=== PATIENT | male | born 1950 | race Caucasian/White ===

== ENCOUNTER → 2016-07-06 07:32 | Outpatient (CLI) | payer MEDICARE | END | disposition home or self-care (01) | LOC: D.RAD 07:32 → D.RT 09:00 → D.RAD 07-21 08:00 → D.RT 07-21 09:00 | DX: K21.9 Gastro-esophageal reflux disease without esophagitis (principal); J44.9 Chronic obstructive pulmonary disease, unspecified ==

== ENCOUNTER → 2016-11-13 09:35 | Outpatient (CLI) | payer MEDICARE | END | disposition home or self-care (01) | LOC: D.RAD 09:35 | DX: J90 Pleural effusion, not elsewhere classified (principal) ==

== ENCOUNTER 2017-01-26 13:00 | Inpatient (IN) | payer MEDICARE ==
[2017-01-26] MEDS ORDERED: ALPHAGAN P15 ML RIGHT EYE (14:19)
[2017-01-26] MEDS ORDERED: XANAX0.25 MG PO (14:20)
[2017-01-26] MEDS ORDERED: NORVASC2.5 MG PO (14:21)
[2017-01-26] MEDS ORDERED: SINEMET 25-1001 EACH PO (14:22)
[2017-01-26] MEDS ORDERED: BREO ELLIPTA 21 EACH (14:22)
[2017-01-26] MEDS ORDERED: COREG25 MG PO (14:23)
[2017-01-26] MEDS ORDERED: COLACE100 MG PO (14:25)
[2017-01-26] MEDS ORDERED: FUROSEMIDE40 MG PO (14:27)
[2017-01-26] MEDS ORDERED: NEURONTIN 300300 MG PO (14:28)
[2017-01-26] MEDS ORDERED: LEVEMIR100 U/M1 SC (14:28)
[2017-01-26] MEDS ORDERED: XALATAN 0.0052.5 ML RIGHT EYE (14:30)
[2017-01-26] MEDS ORDERED: BETAGAN 0.5% OPH5 ML EACH EYE (14:31)
[2017-01-26] MEDS ORDERED: LINZESS290 MCG PO (14:31)
[2017-01-26] MEDS ORDERED: HYZAAR 100-25 T1 TAB PO (14:32)
[2017-01-26] MEDS ORDERED: CLARITIN 10 MG10 MG PO (14:32)
[2017-01-26] MEDS ORDERED: MELATONIN 3 MG1 TAB PO (14:33)
[2017-01-26] MEDS ORDERED: MILK OF MAGNESI30 ML PO (14:34)
[2017-01-26] MEDS ORDERED: REMERON30 MG PO (14:34)
[2017-01-26] MEDS ORDERED: MULTIPLE VITAMI1 TA1 PO (14:35)
[2017-01-26] MEDS ORDERED: NASONEX NASAL S17 GM NS (14:35)
[2017-01-26] MEDS ORDERED: MUCINEX600 MG PO (14:35)
[2017-01-26] MEDS ORDERED: GLYCOLAX527 GM PO (14:38)
[2017-01-26] MEDS ORDERED: EFFEXOR XR150 MG PO (14:38)
[2017-01-26] MEDS ORDERED: TRAZODONE HCL50 MG PO ×2 (14:38→14:41)
[2017-01-26] MEDS ORDERED: HUMULIN R100 U/ML SC (14:48)
[2017-01-26] MEDS ORDERED: IPRAT-ALBUT 0.5-3 ML UPD ×2 (14:51→15:00)
[2017-01-26] MEDS ORDERED: CATAPRES0.1 MG PO (14:55)
[2017-01-26] MEDS ORDERED: HYDRALAZINE HCL25 MG PO (14:56)
[2017-01-26] MEDS ORDERED: ZOFRAN4 MG PO (14:57)
[2017-01-26] MEDS ORDERED: ULTRAM50 MG PO (14:58)
[2017-01-26] MEDS ORDERED: VISTARIL25 MG PO (14:59)
[2017-01-26 15:26] VITALS: BP 160/90; BMI 31.7
--- NOTE | 2017-01-26 15:30 | NUR ---
PATIENT IS ADMITTED FROM [facility], HE IS VOLUNTARY AND OX3, HE ADMITS TO DEPRESSION FOR YEARS, HE SAYS HE HAS HAD MULTIPLE SUICIDE ATTEMPTS OVER HIS LIFETIME, THIS TIME HE SAYS HE WENT TO [facility] WITH A PROJECT ESTIMATOR AND TOLD HER HE WAS GOING TO BUY SOME VITAMINS, BUT HE BOUGHT MELATONIN AND TOOK HALF THE BOTTLE OF IT ONE DAY AND THEN THE OTHER HALF THE NEXT DAY, HE SAYS THIS WAS LAST WEEK, BUT TODAY HE SAID "IF I HAD A GUN I'D SHOOT MYSEL" PATIENT SAYS HE WISHES HE WOULD JUST NOT WAKE UP, HE IS VERY DEPRESSED. HE HAS NO KNOW COPING SKILLS. PATIENT HAS HAD A LEFT HIP SURGERY THIS PAST APRIL AND THERE IS A SMALL SCAR ON THE LEFT UPPER THIGH. HE SAYS THIS IS HIS SECOND SURGERY ON THE SAME HIP FROM TWO DIFFERENT FALLS, HE USES A WALKER TO AMBULATE AND HAS A BUILT UP SHOE ON THE LEFT TO HELP HIM WALK WITH A LESS PRONOUNCED LIMP, ALTHOUGH, PATIENT DOES STILL HAVE A LIMP AND HE IS UNSTEADY EVEN WITH THE USE OF THE WALKER. PATIENT DOES CONTRACT FOR NO SELF HARM AND HE SAYS IF HE FEELS SUICIDAL HE SAYS HE WILL COME TO STAFF AND TELL THEM.
--- NOTE | 2017-01-26 16:00 | NUR ---
PATIENT HAS A YELLOW METAL WATCH ON AND HE IS KEEPING IT ON.
[2017-01-26 17:40] LABS: APPEARANCE CLEAR (CLEAR); BILIRUBIN NEGATIVE (NEGATIVE); COLOR YELLOW (YELLOW); GLUCOSE NEGATIVE (NEGATIVE); KETONE NEGATIVE (NEGATIVE); NITRITE NEGATIVE (NEGATIVE); PROTEIN NEGATIVE (NEGATIVE); SPECIFIC GRAVITY 1.005 (1.005-1.020); UROBILINOGEN NORMAL (NORMAL)
[2017-01-26 19:00] VITALS: BP 183/92
--- NOTE | 2017-01-27 02:37 | NUR ---
B) patient is alert and oriented, patient denies S>I. at this time, contracts for safety, calm and watching TV, I) Administered scheduled medications, monitored for safety R) Medications compliant, pleasant and friendly P) Continue plan of care.
[2017-01-27 05:58] LABS: BASOPHILS 0.4 % (0-2); EOSINOPHILS 6.7 % (0-7); HEMATOCRIT 38.2 % (42.0-54.0); HEMOGLOBIN 12.9 g/dL (13.5-17.5); IMMATURE GRANULOCYTES 1.3 % (0-5); LYMPHOCYTES 26.3 % (15-50); MCH 30.7 pg (26.0-34.0); MCHC 33.8 g/dL (31.0-37.0); MEAN PLATELET VOLUME 8.7 fL (7.4-10.4); MONOCYTES 9.3 % (2-11); PLATELET COUNT 207 10x3/uL (130-400); WBC 9.7 10x3/uL (4.8-10.8)
[2017-01-27 06:26] LABS: HEMOGLOBIN A1C 6.6 % (4.8-6.0)
[2017-01-27 06:40] LABS: ALBUMIN 3.2 g/dL (3.4-5.0); ALKALINE PHOSPHATASE 77 U/L (46-116); ALT (SGPT) 12 U/L (10-68); BILIRUBIN - TOTAL 0.26 mg/dL (0.2-1.3); CALC OSMOLALITY 267 mosm/kg (275-300); CALCIUM 9.1 mg/dL (8.5-10.1); CARBON DIOXIDE 32.2 mmol/L (21.0-32.0); CHLORIDE - SERUM 93 mmol/L (98-107); CHOL - HDL RATIO 5.2 ratio (2.3-4.9); CHOLESTEROL, TOTAL 162 mg/dL (0-200); CREATININE - SERUM 0.7 mg/dL (0.6-1.3); GLUCOSE 135 mg/dL (74-106); HDL CHOLESTEROL 31 mg/dL (32-96); LDL CHOLESTEROL 100 mg/dL (0-100); LDL-HDL RATIO 3.2 ratio (1.5-3.5); POTASSIUM - SERUM 3.6 mmol/L (3.5-5.1); PROTEIN - SERUM 7.5 g/dL (6.4-8.2); SODIUM 134 mmol/L (136-145); THYROID STIMULATING HORMONE 1.23 uIU/mL (0.36-3.74); TRIGLYCERIDE 158 mg/dL (30-200); UREA NITROGEN 8 mg/dL (7-18); eGFR NON AFRICAN AMERICAN > 90 mL/min (90-120)
--- NOTE | 2017-01-27 09:30 | NUR ---
B) PATIENT IS AWAKE AND ALERT, HE AMBULATES INDEPENDENTLY WITH A WALKER, HE IS INTERACTING WITH STAFF AND PEERS AND DOES NOT HAVE A FLAT OR BLUNTED AFFECT, DOES NOT SHOW ANY DEPRESSION, BUT HE DOES SAY HE IS SAD AND HE IS A BIT UPSET THAT THE PSYCHIATRIST CHANGED HIS MED FROM XANAX TO ATIVAN. PATIENT DENIES S.I. TODAY AND CONTRACTS FOR NO SELF HARM AND SAYS HE WILL SEEK STAFF IF HE FEELS LIKE HURTING HIMSELF. I) PROVIDE PRESCRIBED MEDS. R) PATIENT IS COMPLIANT WITH MEDS AND UNIT [facility]. P) CONTINUE POC.
[2017-01-27 11:05] VITALS: BP 162/91
--- NOTE | 2017-01-27 14:30 | NUR ---
PATIENT ASKED FOR A SHOWER AND A SHAVE. DEVIKA QUIROZ T TOOK HIM FOR A SHOWER AND A SHAVE. HE SAYS HE FEELS BETTER.
[2017-01-27 22:47] VITALS: BP 178/100
--- NOTE | 2017-01-27 23:18 | NUR ---
B) Patient is alert and oriented, friendly and pleasant social with staff I) Administered scheduled medications, monitored for safety and for falls, contracted for safety, R) Medication compliant, no S.I. or behaviors noted this shift, P) Continue plan of care.
[2017-01-28 07:00] VITALS: BP 148/88
--- NOTE | 2017-01-28 18:12 | NUR ---
IS ALERT AND ORIENTED X 4.DENIES THOUGHTS OF HARMING SELF TODAY.IS COMPLIANT WITH STAFF AND MEDS.AMBULATES WITH WALKER.WILL CONTINUE WITH PLAN OF CARE,MONITOR FOR SAFETY AND CHANGES.
[2017-01-28 19:30] VITALS: BP 119/96
--- NOTE | 2017-01-28 20:54 | NUR ---
RECEIVED IN BEDROOM. RESTING IN BED WITH EYES CLOSED. RESPONDS TO VOICE. CALM AND COOPERATIVE WITH CARE AND ASSESSMENTS. DENIES THOUGHTS OF SELF HARM. ENCOURAGE TO EXPRESS NEEDS. RESTING IN BED WITH EYES CLOSED AT THIS TIME. CONTINUE PLAN OF CARE
[2017-01-29 08:09] LABS: VITAMIN D 25 HYDROXY 17.7 ng/mL (30.0-100.0)
[2017-01-29 08:11] VITALS: BMI 31.8
[2017-01-29 09:18] VITALS: BP 155/90
--- NOTE | 2017-01-29 10:00 | NUR ---
AWAKE AND ALERT. HE IS CALM AND COOPERATIVEWITH A FLAT AFFECT. HE TALKED ABOUT USING A GUN NEXT TIME AND ENDING IT ALL. ADMINISTERED PRESCRIBED MEDICATIONS. VSS AND ASSESSMENRT COMPLETED. CONTIONUE PLAN OF CARE.
--- NOTE | 2017-01-29 10:44 | PSY ---
PATIENT NAME:ERLIN DAMON MEDICAL RECORD: [id number] : 46 LOCATION:[facility]ael[facility]31 ADMISSION DATE: 01/26/17 ACCOUNT: [id number] PSYCHIATRIC EVALUATION DATE OF EVALUATION: 01/27/17 Initial Psychiatric Workup IDENTIFYING DATA: This is one of several psychiatric contacts and hospitalizations for this 66-year-old unmarried white male. HISTORY OF PRESENT ILLNESS: Mr. Damon has a longstanding history of major depressive disorder. He has been alternatively diagnosed recently as having bipolar disorder type 2. He is currently a resident at a hospital for behavioral [facility] due to recent hip injury and difficulty with ambulation. The patient was previously admitted at the Behavioral Health Unit at [facility] approximately 4 years ago. On this occasion, the patient made a statement to the staff at [facility] that if he had a firearm, he would shoot himself. He had taken half of a bottle of prescription melatonin on one evening and another half of that the following evening. Because of this behavior and his statements, hospital for behavioral medicine referred him for admission. In the past, he has been acutely suicidal. He has responded well to antidepressants in the past as well as supportive therapy. The patient is now admitted because of suicidality. PAST MEDICAL HISTORY: Significant for recent left hip surgery. In addition, the patient has chronic hypertension, type 2 diabetes, neuropathy, Parkinson disease, chronic obstructive pulmonary disease and allergic rhinitis. FAMILY HISTORY: Noncontributory. SOCIAL HISTORY: The patient is single. He has lived in the [place] area his entire life. He does not have substance abuse issues. ALLERGIES: LISTED SULFONAMIDE ANTIBIOTICS. MEDICATIONS: At the time of admission included Alphagan, Norvasc, fluticasone, Sinemet, Coreg, Colace, Lasix, Neurontin, Levemir, Xalatan, Xanax, Betagan, Linzess, Hyzaar, Claritin, Milk of Magnesia, Remeron, Mucinex, multivitamins, Nasonex, MiraLax, Effexor, Humulin insulin, Catapres, Apresoline, Zofran, Ultram and albuterol. MENTAL STATUS EXAMINATION: Mood is dysphoric. Affect is bland. Social skills are good. Speech is fairly fluent. Content of thought is positive for recent suicidal ideation. Sensorium is fairly clear with some difficulties in concentration. DIAGNOSTIC IMPRESSION: AXIS I: Bipolar disorder type 2 -- depressed phase. AXIS II: No diagnosis. AXIS III: Hypertension, type 2 diabetes, Parkinson disease, neuropathy, chronic obstructive pulmonary disease. AXIS IV: Moderate. AXIS V: 38. PLAN: 1. The patient is admitted for further medication revision as indicated. 2. Daily supportive therapy. 3. We will coordinate with referring agency regarding aftercare plans. TRANSINT:[id number] Voice Confirmation ID: [id number] DOCUMENT ID: [id number] SAW CRUZ III, MD at 1044 CC: [id number] DICTATION DATE: 01/27/172049 FILLER AND TRIMMER: 01/27/172118 ADM IN [place] [place] [address]
[2017-01-29 12:13] LABS: FOLATE (FOLIC ACID) - SERUM 5.7 ng/mL (>3.0)
--- NOTE | 2017-01-29 16:08 | NUR ---
ZOFRAN 4 MG PO GIVEN FOR NAUSEA AND INDIGESTION.
[2017-01-29 20:09] VITALS: BP 180/80
--- NOTE | 2017-01-29 23:35 | NUR ---
RECEIVED IN BEDROOM. MOVING ABOUT IN ROOM GETTING READY FOR BED. SOCIAL WITH STAFF. IN GOOD SPIRITS. DENIES THOUGHTS OF SELF HARM. CALM AND COOPERATIVE WITH CARE AND ASSESSMENT. ENCOURAGE TO EXPRESS NEEDS. REDIRECT AND REORIENT NEEDED. RESTING IN BED WITH EYES CLOSED AT THIS TIME. CONTINUE PLAN OF CARE.
[2017-01-30 03:10] LABS: RAPID PLASMA REAGIN Non Reactive (Non Reactive)
[2017-01-30 09:24] VITALS: BP 171/95
--- NOTE | 2017-01-30 10:27 | PN ---
PATIENT:ERLIN VALERIO MEDICAL RECORD: [id number] LOCATION:PR[facility]ote[facility] ADMISSION DATE: 01/26/17 PROGRESS NOTE DATE OF SERVICE: 01/29/2017 SUBJECTIVE: The patient continues to make some suicidal statements. OBJECTIVE: The patient did offer additional history. He is currently seeing Iwona Bee as a counselor in [place]. He has been inconsistent regarding taking his medications. He does request a change in location once he returns to [facility]. The patient has been taking Effexor for about 10 years. On exam, mood is slightly anxious. Affect is bland. Speech is fluent. Content of thought is positive for suicidal statements. Sensorium shows no change. ASSESSMENT: No change in diagnosis. PLAN: 1. We will adjust anxiolytics and antidepressants as indicated. 2. Continue supportive therapy. TRANSINT:[id number] Voice Confirmation ID: [id number] DOCUMENT ID: [id number] SAW CRUZ III, MD at 1027 CC: [id number] DICTATION DATE: 01/29/17 1224 SOLAR INSTALLER TECHNICIAN: 01/29/17 1242 ADM IN [facility] [address] [place] [address]
[2017-01-30 20:52] VITALS: BP 146/66
--- NOTE | 2017-01-30 23:48 | NUR ---
RECEIVED IN ROOM. MOVING ABOUT IN ROOM GETTING READY FOR BED. SOCIALABLE WITH STAFF. IN GOOD SPIRITS. NO THOUGHTS OF SELF HARM. CALM AND COOPERATIVE WITH CARE AND ASSESSMENT. ENCOURAGE TO EXPRESS NEEDS. REDIRECT AND REORIENT NEEDED. RESTING IN BED WITH EYES CLOSED AT THIS TIME. CONTINUE PLAN OF CARE.
[2017-01-31 09:00] VITALS: BP 117/67
--- NOTE | 2017-01-31 09:15 | NUR ---
B) ALERT AND ORIENTED X 4, CALM AND COOPERATIVE WITH CARE. HE IS FRIENDLY AND PLEASANT WITH STAFF. HE IS STILL TALKING ABOUT SUICIDAL THOUGHTS OF SHOOTING HIMSELF. HIS AFFECT IS FLAT AND HE IS DEPRESSED TODAY. I) ADMINISTERED PRESCRIBED MEDICATIONS, VSS, ASSESSMENT COMPLETED. R) MEDICATION COMPLIANT, NO SI. P) CONTINUE PLAN OF CARE.
--- NOTE | 2017-01-31 10:34 | PN ---
PATIENT:ERLIN VALERIO MEDICAL RECORD: [id number] LOCATION:PRANAY [facility]ote113 ADMISSION DATE: 01/26/17 PROGRESS NOTE DATE OF SERVICE: 01/30/2017 SUBJECTIVE: The patient complains of headache. OBJECTIVE: The patient has done fairly well. He continues to give evidence of dysphoria. On exam, mood is rather dysphoric. Affect is constricted. Speech is fairly fluent. Content of thought focuses on somatic concerns. Sensorium shows no change. ASSESSMENT: No change in diagnosis. PLAN: 1. Maintain current medication. 2. Continue supportive therapy. TRANSINT:[id number] Voice Confirmation ID: [id number] DOCUMENT ID: [id number] SAW CRUZ III, MD at 1034 CC: [id number] DICTATION DATE: 01/30/17 1146 SOAP BOILER: 01/30/17 1200 ADM IN [place] [address] [place] [address]
[2017-01-31 20:22] VITALS: BP 220/108
--- NOTE | 2017-02-01 02:35 | NUR ---
B) Patient is alert and oriented X 4, calm and cooperative, no S.I. this shift, contracts for safety I) Administered scheduled medications, monitored for safety, R) Medication compliant, resting quietly in bed, P) Continue plan of care.
[2017-02-01 08:31] VITALS: BP 102/77
--- NOTE | 2017-02-01 09:04 | PN ---
PATIENT:ERLIN VALERIO MEDICAL RECORD: [id number] LOCATION:PRANAY Fregoso ADMISSION DATE: 01/26/17 PROGRESS NOTE DATE OF SERVICE: 01/31/2017 SUBJECTIVE: No new complaint today. OBJECTIVE: The patient is tolerating medication well. He states he thinks he is a little bit better. On exam, mood is for the most part euthymic. Affect is bland. Speech is fluent. Content of thought is negative for overt suicidal intents. Sensorium is unchanged. ASSESSMENT: No change in diagnosis. PLAN: 1. Maintain current medication. 2. Continue supportive therapy. TRANSINT:[id number] Voice Confirmation ID: [id number] DOCUMENT ID: [id number] SAW CRUZ III, MD at 0904 CC: [id number] DICTATION DATE: 01/31/17 1132 ASSISTANT ASSOCIATE FULL PROFESSOR: 01/31/[address] [facility] [address] [place] [address]
--- NOTE | 2017-02-01 19:00 | NUR ---
B) PATIENT IS CALM AND COOPERATIVE, HE AMBULATES WITH A WALKER INDEPENDENTLY, HE DOES ADMIT TO SAYING THAT HE TOLD HIS SISTER "WELL, [place]E [place] [facility] AND BIDE MY TIME UNTIL I ." I) PROVIDE PRESCRIBED MEDS. R) PATIENT COMPLIANT WITH MEDS AND UNIT [facility]IE[facility]. P) CONTINUE POC.
[2017-02-01 22:51] VITALS: BP 177/102
--- NOTE | 2017-02-02 02:10 | NUR ---
B) patient alert and oriented X 4, calm and cooperative with care and assessment, social with staff, I) Administered scheduled medications, monitored for safety and falls, contracted for safety R) Medication compliant, no S.I. this shift, pleasant and friendly, P) Continue plan of care.
--- NOTE | 2017-02-02 06:49 | NUR ---
PRN TRAMADOL 50 MG PO GIVEN FOR HEAD AND LEG PAIN 8 OF 10.
--- NOTE | 2017-02-02 07:21 | NUR ---
B) PATIENT IS AWAKE TODAY AND HE HAS MADE MULTIPLE SOMATIC C/O. HE MENTIONS HE THINKS HE MAY HAVE A UTI, BACKEND JAVA DEVELOPER DID SEND A URINALYSIS. HE AMBULATES INDEPENDENTLY. I) PROVIDE PRESCRIBED MEDS. R) PATIENT IS COMPLIANT WITH MEDS AND UNIT MILIEU. P) CONTINUE POC.
[2017-02-02 10:00] VITALS: BP 149/99
--- NOTE | 2017-02-02 10:06 | NUR ---
PATIENT REQUESTS SOMETHING IN ADDITION TO HIS SCHEDULED LAXATIVE. HE RECIEVED LACTULOSE 45 ML PO NOW.
--- NOTE | 2017-02-02 13:20 | NUR ---
PATIENT STATES LACTULOSE WORKED HE DID HAVE A BM JUST NOW.
[2017-02-02 19:30] VITALS: BP 140/75
--- NOTE | 2017-02-03 02:10 | NUR ---
B) patient alert and oriented X 4, calm and cooperative, I) Administered scheduled medications, monitored for safety and for falls, R) Medications compliant, resting in bed quietly, P) Continue plan of care.
[2017-02-03 08:00] VITALS: BP 159/97
--- NOTE | 2017-02-03 09:30 | NUR ---
PATIENT IS AWAKE AND ALERT X 4. CALM AND COOPERATIVE WITH CARE AND ASSESSMENT. VSS. MONITOR FOR SAFETY AND FALLS. ADMINISTERED PRESCRIBED MEDICATIONS. COMPLIANT WITH TAKING MEDS. CONTINUE PLAN OF CARE.
--- NOTE | 2017-02-03 11:00 | PN ---
PATIENT:ERLIN VALERIO MEDICAL RECORD: [id number] LOCATION:PRANAY [facility] ADMISSION DATE: 01/26/17 PROGRESS NOTE DATE OF SERVICE: 02/02/2017 SUBJECTIVE: The patient's case was discussed with staff. He has no new complaint. OBJECTIVE: The patient is in good behavioral control with very limited insight about his condition. He generally tolerates his medicines well. He denies any intent to harm himself or others. ASSESSMENT: No change in diagnoses. PLAN: Supportive and educational interventions were made. Assisted prognosis is guarded. TRANSINT:[id number] Voice Confirmation ID: [id number] DOCUMENT ID: [id number] NEREIDA BAUM MD at 1100 CC: [id number] DICTATION DATE: 02/02/17 1338 LEAF CONDITIONER HELPER: 02/02/17 1439 ADM IN [id number] [place] [address]
[2017-02-03 19:30] VITALS: BP 126/79
--- NOTE | 2017-02-04 03:29 | NUR ---
RECEIVED IN PATIENT ROOM. RESTING IN BED WTIH EYES CLOSED. RESPONDS TO VOICE. CALM AND COOPERATIVE WITH CARE AND ASSESSMENT. NO THOUGHTS OF SELF HARM. ENCOURAGE TO EXPRESS NEEDS. RESTING IN BED WITH EYES CLOSED AT THIS TIME. CONTINUE PLAN OF CARE.
[2017-02-04 08:00] VITALS: BP 176/83
--- NOTE | 2017-02-04 08:36 | NUR ---
PATIENT IS SITTING UP IN A CHAIR AND EATING BREAKFAST IN THE DINING ROOM. PATIENT IS AWAKE, ALERT, AND ORIENTED X4. PATIENT IS VERY CALM AND COOPERATIVE WITH THE STAFF. SCHEDULED MORNING MEDICATIONS GIVEN TO PATIENT. PATIENT TOLERATED MEDICATIONS WELL WITH NO PROBLEMS NOTED. WILL CONTINUE TO MONITOR PATIENT FOR SAFETY AND CONTINUE PLAN OF CARE.
[2017-02-04 19:30] VITALS: BP 125/81
--- NOTE | 2017-02-05 00:37 | NUR ---
RECEIVED IN ROOM. RESTING IN BED WITH EYES CLOSED. RESPONDS TO VOICE. CALM AND COOPERATIVE WITH CARE AND ASSESSMENT. NO THOUGHTS OF SELF HARM. ENCOURAGE TO EXPRESS NEEDS. REDIRECT AND REORIENT NEEDED. RESTING IN BED WTIH EYES CLOSED AT THIS TIME. CONTINUE PLAN OF CARE.
[2017-02-05 08:00] VITALS: BP 173/98
--- NOTE | 2017-02-05 10:19 | PN ---
PATIENT:ERLIN VALERIO MEDICAL RECORD: [id number] LOCATION:PRANAY [address] ADMISSION DATE: 01/26/17 PROGRESS NOTE DATE OF SERVICE: 02/01/2017 SUBJECTIVE: No new complaint noted. OBJECTIVE: The patient did rest well. He stated he had a good day yesterday and the patient denies suicidal ideation on direct interview. On exam, mood is more or less euthymic. Affect is bland. Speech is fairly fluent. Content of thought as noted above. Sensorium unchanged. ASSESSMENT: No change in diagnosis. PLAN: 1. Continue current medications. 2. Continue supportive therapy. TRANSINT:[id number] Voice Confirmation ID: [id number] DOCUMENT ID: [id number] SAW CRUZ III, MD at 1019 CC: [id number] DICTATION DATE: 02/01/17 1010 UNDERCOLLAR BASTER: 02/01/17 1141 ADM IN [place] [place] [address]
[2017-02-05] MEDS ORDERED: FEXOFENADINE H180 MG PO (10:45)
[2017-02-05] MEDS ORDERED: HYDRALAZINE HCL50 MG PO (10:46)
[2017-02-05] MEDS ORDERED: COZAAR50 MG PO (10:47)
[2017-02-05] MEDS ORDERED: ATIVAN1 MG PO (10:48)
[2017-02-05] MEDS ORDERED: CYMBALTA30 MG PO (10:48)
[2017-02-05] MEDS ORDERED: LINZESS145 MCG PO (10:50)
[2017-02-05] MEDS ORDERED: FLUTICASONE PRO16 GM NASAL (10:50)
[2017-02-05] MEDS ORDERED: DULCOLAX5 MG PO (10:51)
[2017-02-05] MEDS ORDERED: GLUCOPHAGE500 MG PO (10:51)
[2017-02-05] MEDS ORDERED: VITAMIN D5000 UNIT PO (10:51)
[2017-02-05] MEDS ORDERED: VITAMIN B-121000 MCG PO (10:52)
[2017-02-05] MEDS ORDERED: MULTI-DAY VITAM1 TAB PO (10:52)
--- NOTE | 2017-02-05 10:57 | NUR ---
PT IS CALM, COOPERATIVE. DENIES SI AND DEPRESSION. MEDICATIONS GIVEN ORDERED. FALL PRECAUTIONS MAINTAINED. ALL DISCHARGE PAPERWORK FAXED TO FACILITY. DISCHARGE INSTRUCTION REVIEWED WITH PT AND VERBALIZED UNDERSTANDING. WILL CONTINUE TO MONITOR AND CONTINUE WITH PLAN OF CARE.
--- NOTE | 2017-02-05 13:37 | PN ---
PATIENT:ERLIN VALERIO MEDICAL RECORD: [id number] LOCATION:PRANAY Fregoso ADMISSION DATE: 01/26/17 PROGRESS NOTE DATE OF SERVICE: 02/03/2017 SUBJECTIVE: The patient's case was discussed with staff. He has no new complaint. OBJECTIVE: The patient is in good behavioral control with limited insight about his condition. Eye contact is fair. ASSESSMENT: No change in diagnoses. PLAN: Brief supportive and educational interventions were made. The patient's long-term prognosis is guarded. I anticipate he can be transitioned out of the hospital soon if this level of improvement is maintained. TRANSINT:[id number] Voice Confirmation ID: [id number] DOCUMENT ID: [id number] NEREIDA BAUM MD at 1337 CC: [id number] DICTATION DATE: 02/03/17 1133 MANAGER OF ORGANIZATIONAL DEVELOPMENT: 02/03/17 1159 ADM IN [facility] [address] [place] [address]
[2017-02-05 21:18] VITALS: BP 143/76
--- NOTE | 2017-02-06 00:28 | NUR ---
RECEIVED IN PATIENT ROOM. RESTING IN BED WT EYES OPEN. CALM AND COOPERATIVE WITH CARE AND ASSESSMENT. NO THOUGHTS OF SELF HARM. IN GOOD BEHAVIOR. PLEASENTLY TALKING TO STAFF. ENCOURGE TO EXPRESS NEEDS. RESTING IN BED WT EYES CLOSED AT THIS TIME. CONTINUE PLAN OF CARE.
--- NOTE | 2017-02-06 05:37 | DS ---
PATIENT:ERLIN VALERIO :46 MEDICAL RECORD: [id number] DISCHARGE SUMMARY ADMISSION DATE: 01/26/17 DISCHARGE DATE: DATE OF ADMISSION: 01/26/2017 DATE OF DISCHARGE: 02/05/2017 HISTORY: One of several psychiatric contacts and hospitalizations for this 66-year-old unmarried white male. The patient has a long past history of major depressive disorder and bipolar type II. The patient is a [facility] of a local pen[facility] and had been showing worsening depressive symptoms and some suicidal ideation. For further details, please see previously dictated history. COURSE IN THE HOSPITAL: The patient was seen in consultation by Dr. Ahn. Dr. Ahn managed ongoing medical problems including diabetes, hypertension, Parkinson disease, COPD, and allergic rhinitis. From a psychiatric standpoint, it was elected to discontinue previous dose of Effexor and start the patient on Cymbalta 90 mg daily. Otherwise, significant changes in psychiatric medications were not attempted, however, the patient was switched from Xanax to Ativan on a routine basis. The patient showed a good resolution of his depressive symptoms. He was a good participant in group activities as well as individual therapy sessions. By the time of discharge, no evidence of suicidality. Mood was euthymic and affect was well controlled. FINAL DIAGNOSES: AXIS I: Bipolar type II - depressed phase - improving. AXIS II: No diagnosis. AXIS III: Chronic obstructive pulmonary disease, neuropathy, Parkinson disease, type 2 diabetes, and hypertension. AXIS IV: Moderate. AXIS V: 50. PLAN: 1. The patient is discharged on the current medications. 2. Diet and activities as tolerated. 3. Follow up through primary care physician at the penitentiary. TRANSINT:[id number] Voice Confirmation ID: [id number] DOCUMENT ID: [id number] SAW CRUZ III, MD at 0537 CC: [id number] DICTATION DATE: 02/05/17 1140 OCEAN EXPORT AGENT: 02/05/17 1421 ADM IN [address] [place] [address]
--- NOTE | 2017-02-06 13:10 | NUR ---
Alert and oriented times four. Calm and cooperative with care. very social and pleasant. Encourage patient to express feelings and monitor for any suicidial ideations. Participates in group, socializes and makes needs know, no suicidial ideations. Safety maintained. Continue plan of care.
[2017-02-06 20:39] VITALS: BP 159/95
--- NOTE | 2017-02-07 03:13 | NUR ---
RECEIVED IN BEDROOM. RESTING IN BED WITH EYES CLOSED. RESPONDS TO VOICE. CALM AND COOPERATIVE WITH CARE AND ASSESSMENTS. IN GOOD SPIRITS. DENIES THOUGHTS OF SELF HARM. ENCOURAGE TO EXPRESS NEEDS AND FEELINGS. RESTING IN BED WITH EYES CLOSED AT THIS TIME. CONTINUE PLAN OF CARE
--- NOTE | 2017-02-07 10:07 | NUR ---
CALM, COOPERATIVE WITH CARE. NO AGGRESSION. DENIES SI AND DEPRESSION. STAFF CONTINUE TO ENCOURAGE PT TO EXPRESS FEELINGS AND PARTICIPATE IN GROUPS. MEDICATIONS GIVEN ORDERED. WAITING ON APPROVAL FROM FACILITY TO DISCHARGE BACK TO THEM. FALL PRECAUTIONS MAINTAINED. WILL CONTINUE TO MONITOR AND CONTINUE WITH PLAN OF CARE.
--- NOTE | 2017-02-07 10:43 | PN ---
PATIENT:ERLIN VALERIO MEDICAL RECORD: [id number] LOCATION:PRANAY [address] ADMISSION DATE: 01/26/17 PROGRESS NOTE DATE OF SERVICE: 02/06/2017 SUBJECTIVE: No new complaint. OBJECTIVE: The patient's discharge has been delayed by [facility] due to the need for resident review. On exam, mood is euthymic. Affect bland. Speech fluent. Content of thought is unchanged. Sensorium unchanged. ASSESSMENT: No change in diagnosis. PLAN: 1. Maintain current treatment plan. 2. Anticipate discharge when [facility] [facility] gives the approval. TRANSINT:[id number] Voice Confirmation ID: [id number] DOCUMENT ID: [id number] SAW CRUZ III, MD at 1043 CC: [id number] DICTATION DATE: 02/06/17 1236 SCREW REMOVER: 02/06/17 1329 ADM IN [facility] [address] [place] [address]
[2017-02-07 11:10] VITALS: BP 180/111
--- NOTE | 2017-02-07 18:31 | NUR ---
Alert, oriented, calm, pleasant mood, denies pain/needs at this time. Sitting in w/c in dayroom.
[2017-02-07 19:38] VITALS: BP 154/71
--- NOTE | 2017-02-08 01:55 | NUR ---
RECEIVED IN BEDROOM. RESTING IN BED WTIH EYES CLOSED. RESPONDS TO VOICE. ALERT AND ORIENTED. IN GOOD SPIRITS. CALM AND COOPERATIVE WITH CARE AND ASSESSMENT. PATIENT DENIES ANY THOUGHTS OF SELF HARM. ENCOURAGE TO EXPRESS NEEDS. RESTING IN BED WITH EYES CLOSED AT THIS TIME. CONTINUE PLAN OF CARE.
--- NOTE | 2017-02-08 05:44 | PN ---
PATIENT:ERLIN VALERIO MEDICAL RECORD: [id number] LOCATION:[facility] ADMISSION DATE: 01/26/17 PROGRESS NOTE DATE OF SERVICE: 02/07/2017 SUBJECTIVE: No new complaint. OBJECTIVE: The patient's discharge is still delayed pending a reply from [facility]. On exam, mood is euthymic. Affect bland. Speech is fluent. Content of thought is negative for psychosis. Sensorium unchanged. ASSESSMENT: No change in diagnosis. PLAN: 1. Continue current treatment plan. 2. Anticipate discharge soon. TRANSINT:[id number] Voice Confirmation ID: [id number] DOCUMENT ID: [id number] SAW CRUZ III, MD at 0544 CC: [id number] DICTATION DATE: 02/07/17 1139 STILL CLEANER: 02/07/17 1157 ADM IN [facility] [address] [place] [address]
--- NOTE | 2017-02-08 09:00 | NUR ---
B) PATIENT IS AWAKE AND ALERT, HE IS READY TO GO HOME, WAITING FOR KASSANDRA TO COME IN AND HE MAY D/C. PATIENT IS ABLE TO AMBULATE INDEPENDENTLY WITH HIS WALKER, HE HAS NOT MADE ANY S.I. I) PROVIDE PRESCRIBED MEDS. R) PATIENT IS COMPLIANT WITH MEDS AND UNIT MILIEU. P) CONTINUE POC.
--- NOTE | 2017-02-08 10:00 | NUR ---
KASSANDRA CAME BACK AND HAS SAID PATIENT CAN D/C BACK TO [facility]. FAXED ALL D/C ORDERS AND MEDS. PACKED PATIENT UP AND HE IS AWAITING A RIDE FROM [facility].
--- NOTE | 2017-02-08 10:40 | NUR ---
[facility] IS HERE TO TRANSPORT PATIENT BACK TO [facility], REPORT CALLED TO HIS NURSE. PATIENT ASSISTED TO TURNERS STATION WITH STAFF. PATIENT IS NOW D/C'D.
--- NOTE | 2017-02-09 10:01 | DS ---
PATIENT:ERLIN DAMON :46 MEDICAL RECORD: [id number] DISCHARGE SUMMARY ADMISSION DATE: 01/26/17 DISCHARGE DATE: 02/08/17 ADDENDUM Previous discharge summary was dictated about 3 days ago. Mr. Damon's discharge was delayed due to the need for authorization from [facility]. We have received that authorization as of today. The patient will be transported back to [facility]. FINAL DIAGNOSES AND PLAN: Remain the same. TRANSINT:[id number] Voice Confirmation ID: [id number] DOCUMENT ID: [id number] SAW CRZU III, MD at 1001 CC: [id number] DICTATION DATE: 02/08/17 120 SCREEN EXAMINER: 02/08/17 1222 DIS IN 02/08/17 [facility] [address] [place] [address]
== END 2017-02-08 10:40 | DRG 885 ==
LOC: D.PSYCH 13:00
PROVIDERS: ADMIT Psychiatry & Neurology Psychiatry
DX: F31.30 Bipolar disorder, current episode depressed, mild or moderate severity, unspecified (principal); E11.40 Type 2 diabetes mellitus with diabetic neuropathy, unspecified; Z79.4 Long term (current) use of insulin; G20 Parkinson's disease; I10 Essential (primary) hypertension; J44.9 Chronic obstructive pulmonary disease, unspecified; J30.9 Allergic rhinitis, unspecified; E53.8 Deficiency of other specified B group vitamins; E55.9 Vitamin D deficiency, unspecified

== ENCOUNTER 2018-07-15 15:51 | Inpatient (IN) | payer MEDICARE ==
[~2018-07-15] VITALS: Ht 182.9 cm; Wt 89.8 kg
[~2018-07-15 15:51] MED LIST: ALPHAGAN P15 ML RIGHT EYE; ATIVAN1 MG PO; BETAGAN 0.5% OPH5 ML EACH EYE; BREO ELLIPTA 21 EACH; CATAPRES0.1 MG PO; CLARITIN 10 MG10 MG PO; COLACE100 MG PO; COREG25 MG PO; COZAAR50 MG PO; CYMBALTA30 MG PO; DULCOLAX5 MG PO; EFFEXOR XR150 MG PO; FEXOFENADINE H180 MG PO; FLUTICASONE PRO16 GM NASAL; FUROSEMIDE40 MG PO; GLUCOPHAGE500 MG PO; GLYCOLAX527 GM PO; HUMULIN R100 U/ML SC; HYDRALAZINE HCL25 MG PO; HYDRALAZINE HCL50 MG PO; HYZAAR 100-25 T1 TAB PO; IPRAT-ALBUT 0.5-3 ML UPD; LEVEMIR100 U/M1 SC; LINZESS145 MCG PO; LINZESS290 MCG PO; MELATONIN 3 MG1 TAB PO; MILK OF MAGNESI30 ML PO; MUCINEX600 MG PO; MULTI-DAY VITAM1 TAB PO; MULTIPLE VITAMI1 TA1 PO; NASONEX NASAL S17 GM NS; NEURONTIN 300300 MG PO; NORVASC2.5 MG PO; REMERON30 MG PO; SINEMET 25-1001 EACH PO; TRAZODONE HCL50 MG PO; ULTRAM50 MG PO; VISTARIL25 MG PO; VITAMIN B-121000 MCG PO; VITAMIN D5000 UNIT PO; XALATAN 0.0052.5 ML RIGHT EYE; XANAX0.25 MG PO; ZOFRAN4 MG PO
[2018-07-15] MEDS ORDERED: BAYER CHEWABLE81 MG PO (17:24)
[2018-07-15] MEDS ORDERED: ALOPHEN PILLS5 MG PO (17:25)
[2018-07-15] MEDS ORDERED: BREO ELLIPTA 21 EACH (17:26)
[2018-07-15] MEDS ORDERED: CYMBALTA60 MG PO (17:26)
[2018-07-15] MEDS ORDERED: FLUTICASONE PRO16 GM NASAL (17:27)
[2018-07-15] MEDS ORDERED: LIPITOR20 MG PO (17:27)
[2018-07-15] MEDS ORDERED: LASIX40 MG PO (17:27)
[2018-07-15] MEDS ORDERED: COZAAR100 MG PO (17:28)
[2018-07-15] MEDS ORDERED: ZYPREXA5 MG PO (17:29)
[2018-07-15] MEDS ORDERED: HYDROCHLOROTHIA25 MG PO (17:29)
[2018-07-15] MEDS ORDERED: HYTRIN5 MG PO (17:31)
[2018-07-15] MEDS ORDERED: K-DUR20 MEQ PO (17:31)
[2018-07-15] MEDS ORDERED: XARELTO15 MG PO (17:32)
[2018-07-15] MEDS ORDERED: ASPERCREME 5 OZ5 OZ TOPICAL (17:33)
[2018-07-15] MEDS ORDERED: ALPHAGAN P15 ML RIGHT EYE (17:33)
[2018-07-15] MEDS ORDERED: MUCINEX600 MG PO (17:34)
[2018-07-15] MEDS ORDERED: NEURONTIN 300300 MG PO (17:34)
[2018-07-15] MEDS ORDERED: KLONOPIN0.5 MG PO (17:34)
[2018-07-15] MEDS ORDERED: HYDRALAZINE HCL50 MG (17:35)
[2018-07-15] MEDS ORDERED: CATAPRES0.1 MG (17:37)
[2018-07-15] MEDS ORDERED: ADVIL200 MG PO (17:37)
[2018-07-15 22:48] VITALS: BP 150/71; BMI 26.9
[2018-07-16 06:12] LABS: BASOPHILS 0.5 % (0-2); EOSINOPHILS 7.1 % (0-7); HEMATOCRIT 28.2 % (42.0-54.0); IMMATURE GRANULOCYTES 0.5 % (0-5); LYMPHOCYTES 17.8 % (15-50); MCH 28.6 pg (26.0-34.0); MCHC 31.9 g/dL (31.0-37.0); MCV 89.5 fL (80.0-100.0); MEAN PLATELET VOLUME 8.7 fL (7.4-10.4); MONOCYTES 8.3 % (2-11); NEUTROPHILS 65.8 % (40-80); PLATELET COUNT 166 10x3/uL (130-400); RBC 3.15 10x6/uL (4.20-6.10); WBC 8.8 10x3/uL (4.8-10.8)
[2018-07-16 06:58] LABS: ALKALINE PHOSPHATASE 82 U/L (46-116); ALT (SGPT) 8 U/L (10-68); BILIRUBIN - TOTAL 0.35 mg/dL (0.2-1.3); CALC OSMOLALITY 275 mosm/kg (275-300); CHLORIDE - SERUM 98 mmol/L (98-107); CHOL - HDL RATIO 3.6 ratio (2.3-4.9); CHOLESTEROL, TOTAL 90 mg/dL (0-200); GLUCOSE 125 mg/dL (74-106); HDL CHOLESTEROL 25 mg/dL (32-96); LDL CHOLESTEROL 52 mg/dL (0-100); LDL-HDL RATIO 2.1 ratio (1.5-3.5); POTASSIUM - SERUM 3.7 mmol/L (3.5-5.1); PROTEIN - SERUM 6.9 g/dL (6.4-8.2); SODIUM 137 mmol/L (136-145); TRIGLYCERIDE 68 mg/dL (30-200); UREA NITROGEN 14 mg/dL (7-18); eGFR NON AFRICAN AMERICAN 78 mL/min (90-120)
[2018-07-16 08:01] VITALS: BP 147/88
[2018-07-16 10:12] VITALS: BMI 26.9
[2018-07-16 20:14] VITALS: BP 123/72
[2018-07-17 06:14] LABS: VITAMIN D 25 HYDROXY 53.5 ng/mL (30.0-100.0)
[2018-07-17 07:31] LABS: RAPID PLASMA REAGIN Non Reactive (Non Reactive)
[2018-07-17 08:00] VITALS: BP 135/82
[2018-07-17 10:20] LABS: FOLATE (FOLIC ACID) - SERUM 16.4 ng/mL (>3.0)
[2018-07-17 10:59] LABS: APPEARANCE SL CLDY (CLEAR); BACTERIA MODERATE /hpf (NONE SEEN); BILIRUBIN NEGATIVE (NEGATIVE); COLOR YELLOW (YELLOW); EPITHELIAL CELLS 0-5 /hpf (0-5); GLUCOSE NEGATIVE (NEGATIVE); KETONE NEGATIVE (NEGATIVE); NITRITE NEGATIVE (NEGATIVE); PROTEIN TRACE mg/dL (NEGATIVE); RED CELLS - URINE 0-5 /hpf (0-5); SPECIFIC GRAVITY 1.005 (1.005-1.020); UROBILINOGEN NORMAL (NORMAL); WHITE CELLS - URINE 25-50 /hpf (0-5)
--- NOTE | 2018-07-17 14:15 | PSY ---
PATIENT NAME:ERLIN VALERIO MEDICAL RECORD: [id number] : 46 LOCATION:[facility]1 ADMISSION DATE: 07/15/18 ACCOUNT: [id number] PSYCHIATRIC EVALUATION DATE OF EVALUATION: 07/16/18 IDENTIFYING DATA: The patient is 68 years old and he is admitted to the hospital secondary to suicidal statements. CHIEF COMPLAINT: "I just was upset." HISTORY OF PRESENT ILLNESS: The patient lives in a half-way in [place]. He says that he had planned to overdose and told the nursing staff there that he was going to do so. He tells me that the Bible says that a man's life is threescore and ten and that is enough. He says that he has turned 68 this June and feels that it is time to leave. He now says he thinks he is going to change his mind because it would be wrong to do something ahead of God's schedule. He endorses numerous neurovegetative depressive symptoms including poor sleep, poor appetite, loss of interest in usual activities, and feeling helpless and hopeless. Although he is hyper-cheondoism, I do believe he is psychotic. PAST MEDICAL HISTORY: Significant for Parkinson disease, neuropathy, glaucoma, diabetes, hypertension, COPD, hip fracture, and cataracts. PAST PSYCHIATRIC HISTORY: Significant for multiple psychiatric hospitalizations and numerous inpatient and outpatient treatments. He has indeed attempted to harm himself multiple times in the past. It is not overreacting for the half-way to respond when he makes any kind of overture or statement about hurting himself. He does not have a history of substance abuse. FAMILY HISTORY: Significant for cancer and hypertension, but negative for psychiatric disease by his report. ALLERGIES: SULFA. CURRENT MEDICATIONS: Include Ultram, Catapres, insulin, Neurontin, Mucinex, Klonopin, Xarelto, Hytrin, K-Dur, Zyprexa, hydrochlorothiazide, Lipitor, Lasix, Cymbalta, aspirin, Zofran, Remeron, a variety of eye drops, Coreg, and Sinemet. SOCIAL HISTORY: The patient is single. He has never been and has no children. He is from [place] and does not have a history of drug or alcohol abuse. MENTAL STATUS EXAMINATION: The patient is awake, alert and oriented fully. He is mildly mistaken about the date. His mood is depressed. His affect is appropriate. Thought processes are circumstantial. Memory, concentration, and abstraction abilities are mildly impaired, and he denies any active intent to harm himself or others as well as overt psychotic symptoms. ASSETS: Supportive family members. LIABILITIES: Limited insight. DIAGNOSTIC IMPRESSION: AXIS I: Bipolar disorder type 2, depressed phase. AXIS II: None. AXIS III: Hypertension, diabetes, Parkinson disease, neuropathy, chronic obstructive pulmonary disease. AXIS IV: Moderate. AXIS V: Global assessment of functioning is 40. PLAN: At this time, the patient is admitted to the hospital secondary to suicidal thoughts. He will be comprehensively evaluated from both a medical, psychological, and social standpoint. He will be treated with both mood stabilizing and memory enhancing medications. His long-term prognosis is guarded. TRANSINT:[id number] Voice Confirmation ID: [id number] DOCUMENT ID: [id number] NEREIDA BAUM MD at 1415 CC: [id number] DICTATION DATE: 07/16/18 1257 VARNISH FILTERER: 07/16/[address] [facility] [address] [place] [id number]
[2018-07-18 07:13] VITALS: BP 108/55
[2018-07-18 08:21] VITALS: BP 139/79
--- NOTE | 2018-07-18 16:09 | PN ---
PATIENT:ERLIN VALERIO MEDICAL RECORD: [id number] LOCATION:[facility] ADMISSION DATE: 07/15/18 PROGRESS NOTE DATE OF SERVICE: 07/17/2018 SUBJECTIVE: The patient's case was discussed with staff. He has no new complaint. OBJECTIVE: The patient is oriented fully. He tells me that he is satisfied with his medication regimen and does feel that it is helping. He does not want me to change his Cymbalta. ASSESSMENT: No change in diagnoses. PLAN: The patient will be maintained on current medications. Brief supportive and educational interventions were made. TRANSINT:[id number] Voice Confirmation ID: [id number] DOCUMENT ID: [id number] NEREIDA BAUM MD at 1609 CC: [id number] DICTATION DATE: 07/17/18 1450 SOLDERER TORCH: 07/17/18 1514 ADM IN [id number] [place] [address]
[2018-07-18 20:22] VITALS: BP 140/74
[2018-07-19 08:59] VITALS: BP 136/77
--- NOTE | 2018-07-19 15:40 | PN ---
PATIENT:ERLIN VALERIO MEDICAL RECORD: [id number] LOCATION:[facility] ADMISSION DATE: 07/15/18 PROGRESS NOTE DATE OF SERVICE: 07/18/2018 SUBJECTIVE: The patient's case was discussed with staff. He has no new complaint. OBJECTIVE: The patient is denying intent to harm himself or others. He does have a depressed mood. He is tolerating his Depakote well. ASSESSMENT: No change in diagnoses. PLAN: Supportive and educational interventions were made. Long-term prognosis is guarded. TRANSINT:[id number] Voice Confirmation ID: [id number] DOCUMENT ID: [id number] NEREIDA BAUM MD at 1540 CC: [id number] DICTATION DATE: 07/18/18 1710 HEALTH SAFETY MANAGER: 07/18/18 2305 ADM IN [facility] [address] [place] [address]
[2018-07-19 22:55] VITALS: BP 162/88
[2018-07-20 08:00] VITALS: BP 142/70
--- NOTE | 2018-07-20 11:00 | PN ---
PATIENT:ERLIN VALERIO MEDICAL RECORD: [id number] LOCATION:T[facility]sa [facility]ote113 ADMISSION DATE: 07/15/18 PROGRESS NOTE DATE OF SERVICE: 07/19/2018 SUBJECTIVE: The patient's case was discussed with staff. He has no new complaint. OBJECTIVE: The patient is in good behavioral control. He is tolerating his medicines well. He has not had any thoughts of harming himself or others. His Depakote level yesterday was subtherapeutic. ASSESSMENT: Bipolar disorder. PLAN: I am going to discontinue the patient's current dose of Depakote and will increase the dose to 500 mg twice daily. His long-term prognosis is guarded. TRANSINT:[id number] Voice Confirmation ID: [id number] DOCUMENT ID: [id number] NEREIDA BAUM MD at 1100 CC: [id number] DICTATION DATE: 07/19/18 1621 BALLET COMPANY MEMBER: 07/20/18 0034 ADM IN [id number] [place] [address]
[2018-07-21 00:35] VITALS: BP 151/78
[2018-07-21 07:00] VITALS: BP 109/89
--- NOTE | 2018-07-21 10:05 | PN ---
PATIENT:ERLIN VALERIO MEDICAL RECORD: [id number] LOCATION:PR[facility]Y [facility]ote[facility] ADMISSION DATE: 07/15/18 PROGRESS NOTE DATE OF SERVICE: 07/20/2018 SUBJECTIVE: The patient's case was discussed with staff. He has no new complaint. OBJECTIVE: The patient has a depressed mood, but no thoughts of self-harm. He is tolerating his higher dose of Depakote very well. I am going to continue him on the antidepressant Cymbalta. TRANSINT:[id number] Voice Confirmation ID: [id number] DOCUMENT ID: [id number] NEREIDA BAUM MD at 1005 CC: [id number] DICTATION DATE: 07/20/18 1157 CUSTOMER SUPPORT EXECUTIVE: 07/20/18 1308 ADM IN [place] [id number] [place] [id number]
[2018-07-21 20:22] VITALS: BP 183/93
[2018-07-22 07:00] VITALS: BP 125/60
--- NOTE | 2018-07-22 15:11 | PN ---
PATIENT:ERLIN VALERIO MEDICAL RECORD: [id number] LOCATION:PRANAY Fregoso ADMISSION DATE: 07/15/18 PROGRESS NOTE DATE OF SERVICE: 07/21/2018 SUBJECTIVE: The patient's case was discussed with staff. He has no new complaint. OBJECTIVE: The patient denies intent to harm himself or others. He does tolerate his medicines well. ASSESSMENT: Bipolar disorder. PLAN: The patient is going to be transitioned back to the [facility]. He is not showing any evidence of acute or direct dangerousness and I anticipate he can be transitioned out of the hospital soon. TRANSINT:[id number] Voice Confirmation ID: [id number] DOCUMENT ID: [id number] NEREIDA BAUM MD at 1511 CC: [id number] DICTATION DATE: 07/21/18 1128 CLAIM ADJUSTER: 07/21/18 1843 ADM IN [facility] [address] [place] [address]
[2018-07-22 20:32] VITALS: BP 123/75
[2018-07-23 07:00] VITALS: BP 112/55
[2018-07-23 11:51] VITALS: Ht 182.9 cm; Wt 89.8 kg
--- NOTE | 2018-07-23 15:34 | PN ---
PATIENT:ERLIN VALERIO MEDICAL RECORD: [id number] LOCATION:PRANAY Fregoso ADMISSION DATE: 07/15/18 PROGRESS NOTE DATE OF SERVICE: 07/22/2018 SUBJECTIVE: The patient's case was discussed with staff. He has no new complaint. OBJECTIVE: The patient is tolerating his medicines well. He has not been aggressive or threatening to harm himself. ASSESSMENT: Bipolar disorder. PLAN: Current medicines have been reviewed and will be maintained. His long-term prognosis is guarded. TRANSINT:[id number] Voice Confirmation ID: [id number] DOCUMENT ID: [id number] NEREIDA BAUM MD at 1534 CC: [id number] DICTATION DATE: 07/22/18 1549 SERVICE DESK MANAGER: 07/22/[address] [facility] [address] [place] [address]
[2018-07-23 19:45] VITALS: BP 129/71
--- NOTE | 2018-07-24 15:01 | PN ---
PATIENT:ERLIN VALERIO MEDICAL RECORD: [id number] LOCATION:PRANAY [facility] ADMISSION DATE: 07/15/18 PROGRESS NOTE DATE OF SERVICE: 07/23/2018 SUBJECTIVE: The patient's case was discussed with staff. He has no new complaint. OBJECTIVE: The patient is denying any intent to harm himself or others. He is tolerating his medications well. ASSESSMENT: Bipolar disorder. PLAN: The patient will have a Depakote level checked. I think he has shown some significant improvement. His long-term prognosis is guarded. TRANSINT:[id number] Voice Confirmation ID: [id number] DOCUMENT ID: [id number] NEREIDA BAUM MD at 1501 CC: [id number] DICTATION DATE: 07/23/18 1552 PROCESS IMPROVEMENT CONSULTANT: 07/23/181909 ADM IN [facility] [address] [place] [address]
[2018-07-24] MEDS ORDERED: GENTAMICIN80 MG/2 ML IM (16:13)
[2018-07-24] MEDS ORDERED: DEPAKOTE500 MG PO (16:15)
[2018-07-24] MEDS ORDERED: FLORAJEN3 CAPS460 MG PO (16:17)
[2018-07-24] MEDS ORDERED: Bactroban ointment TOPICAL (16:17)
[2018-07-24] MEDS ORDERED: MILK OF MAGNESI30 ML PO (16:17)
[2018-07-24 20:18] VITALS: BP 159/93
--- NOTE | 2018-07-25 08:28 | PN ---
PATIENT:ERLIN VALERIO MEDICAL RECORD: [id number] LOCATION:PRANAY Fregoso ADMISSION DATE: 07/15/18 PROGRESS NOTE DATE OF SERVICE: 07/24/2018 SUBJECTIVE: The patient's case was discussed with staff. He has no new complaint. OBJECTIVE: The patient is in good behavioral control with limited insight about his condition. He does tolerate his medicines well. ASSESSMENT: No change in diagnoses. PLAN: Brief supportive and educational interventions were made. Long-term prognosis is guarded. The patient will be transitioned out of the hospital tomorrow if this level of improvement continues. TRANSINT:[id number] Voice Confirmation ID: [id number] DOCUMENT ID: [id number] NEREIDA BAUM MD at 0828 CC: [id number] DICTATION DATE: 07/24/18 161 PRE K SPECIAL EDUCATION TEACHER: 07/24/18 1617 ADM IN [facility] [address] [place] [id number]
[2018-07-25 09:30] VITALS: BP 159/93
--- NOTE | 2018-07-27 12:33 | PN ---
PATIENT:ERLIN VALERIO MEDICAL RECORD: [id number] LOCATION:PRANAY Fregoso ADMISSION DATE: 07/15/18 PROGRESS NOTE DATE OF SERVICE: 07/25/2018 SUBJECTIVE: The patient's case was discussed with staff. He has no new complaint. OBJECTIVE: The patient denies intent to harm himself or others. He is generally tolerating his medicines well. Eye contact is fair. Concentration is fair. ASSESSMENT: Bipolar disorder. PLAN: The patient will be transitioned out of the hospital today. Follow up will be with his primary care prison physician. He has no evidence of acute or direct dangerousness. TRANSINT:[id number] Voice Confirmation ID: [id number] DOCUMENT ID: [id number] NEREIDA BAUM MD at 1233 CC: [id number] DICTATION DATE: 07/25/18 1608 SNUFF DRIER: 07/25/18 1801 DIS IN 07/25/18 [facility] [address] [place] [address]
--- NOTE | 2018-07-28 12:21 | DS ---
PATIENT:ERLIN VALERIO :46 MEDICAL RECORD: [id number] DISCHARGE SUMMARY ADMISSION DATE: 07/15/18 DISCHARGE DATE: 07/25/18 IDENTIFYING DATA: The patient is 68 years old and he was admitted to the hospital on a voluntary basis secondary to suicidal statements. The patient lives in a local intermediate. He has a long history of depression and numerous psychiatric hospitalizations. He told the staff there that he had been saving his pills and was planning to overdose. When I interview him, he tells me that the Bible says that a man's life is 3 score in 10 that is enough. He says that he is that age, which is 68 and that it is time for him to . HOSPITAL COURSE: The patient was admitted to the hospital and fully evaluated from both a medical, psychological, and social standpoint. He was treated with both mood stabilizing and antidepressant medications. He showed improvement and had a loss of suicidal thoughts and was subsequently transitioned back to the intermediate. DISCHARGE DIAGNOSES: AXIS I: Bipolar disorder type 2, depressed phase. AXIS II: None. AXIS III: Hypertension, diabetes, Parkinson disease, neuropathy, chronic obstructive pulmonary disease. AXIS IV: Moderate. AXIS V: Global Assessment Of Functioning is 45. PLAN: At the time of discharge, the patient was in good behavioral control, had a euthymic mood and no active thoughts of harming himself or others. He has very limited insight about his situation. He is to continue taking his current medications and will have followup both with the [facility] and his primary care intermediate physician. TRANSINT:[id number] Voice Confirmation ID: [id number] DOCUMENT ID: [id number] NEREIDA BAUM MD at 1221 CC: [id number] DICTATION DATE: 07/27/18 1236 SURGERY TECH: 07/28/18 0127 DIS IN 07/25/18 [place] [id number] [place] [address]
== END 2018-07-25 17:45 | DRG 885 ==
LOC: D.PSYCH 15:51
PROVIDERS: ADMIT Psychiatry & Neurology Psychiatry; ATTEND Psychiatry & Neurology Psychiatry
DX: F31.30 Bipolar disorder, current episode depressed, mild or moderate severity, unspecified (principal); R45.851 Suicidal ideations; N39.0 Urinary tract infection, site not specified; G20 Parkinson's disease; J44.9 Chronic obstructive pulmonary disease, unspecified; E11.40 Type 2 diabetes mellitus with diabetic neuropathy, unspecified; E78.5 Hyperlipidemia, unspecified; I11.0 Hypertensive heart disease with heart failure; I50.9 Heart failure, unspecified; M19.90 Unspecified osteoarthritis, unspecified site; E53.8 Deficiency of other specified B group vitamins; I25.10 Atherosclerotic heart disease of native coronary artery without angina pectoris; E55.9 Vitamin D deficiency, unspecified; H40.9 Unspecified glaucoma; K59.00 Constipation, unspecified; J30.9 Allergic rhinitis, unspecified; B96.20 Unspecified Escherichia coli [E. coli] as the cause of diseases classified elsewhere; S80.212A Abrasion, left knee, initial encounter; X58.XXXA Exposure to other specified factors, initial encounter